=== PATIENT | female | born 2000 | race Caucasian/White ===

== ENCOUNTER 2021-08-21 07:21 | Emergency (ER) | payer MEDICAID ==
[~2021-08-21] VITALS: Ht 165.1 cm; Wt 52.3 kg
--- NOTE | 2021-08-21 08:00 | NUR ---
spoke to patient mother to inquire about what is going on ?pt mother stated she is having panic attack x 2 months they were going to the clinic or urgent care ,3 days ago precribed buspirone and since pt started taking pt got more worse . pt is paranoid about being septic and going to ,having visual hallucination about rashes and bruise all over her body and also concerned about having hiv. assessed the the whole body for any rashes .no rashes or bruise noted .
--- NOTE | 2021-08-21 08:20 | NUR ---
dr willis and mil at bedside.
[2021-08-21] MEDS ORDERED: LORazepam 1 MG tablet PO ONE (08:25)
[2021-08-21 08:50] LABS: URINE HCG NEGATIVE (NEG)
[2021-08-21 08:52] LABS: CLARITY,URINE SLIGHTLY CLOUDY (Clear); COLOR,URINE YELLOW (Yellow); GLUCOSE, URINE NEGATIVE (Neg); KETONES,URINE 40 mg/dl (Neg); LEUKOCYTE ESTERASE ,URINE NEGATIVE (Neg); NITRITES, URINE NEGATIVE (Neg); OCCULT BLOOD,URINE LARGE (Neg); PH,URINE 6.5 (4.8-8.0); PROTEIN,URINE NEGATIVE (Neg); UA COLLECTION TYPE CLN CATCH MIDSTREAM; UROBILINOGEN,URINE 0.2 E.U/dL (0.2-1.0)
[2021-08-21 08:57] LABS: URINE AMPHETAMINE SCREEN NEGATIVE (Neg); URINE BARBITUATE SCREEN NEGATIVE (Neg); URINE BENZODIAZEPINES SCREEN NEGATIVE (Neg); URINE CANNABINOID SCREEN POSITIVE (Neg); URINE COCAINE SCREEN NEGATIVE (Neg); URINE METHADONE SCREEN NEGATIVE (Neg); URINE OPIATE SCREEN NEGATIVE (Neg); URINE PHENCYCLIDINE SCREEN NEGATIVE (Neg)
[2021-08-21 08:58] LABS: SQUAMOUS EPITHELIAL CELL,UR MODERATE /LPF (FEW)
[2021-08-21 08:59] LABS: BACTERIA,URINE FEW /HPF (Neg); RBC,URINE 20-50 /HPF (0-2); WBC,URINE 0-4 /HPF (0-4)
--- NOTE | 2021-08-21 09:10 | NUR ---
dr thompson at bedside talking to pt and her mother.
[2021-08-21] MEDS ORDERED: LORA-269 PO (09:20)
[2021-08-21 09:34] VITALS: BP 120/82
== END 2021-08-21 09:37 | disposition home or self-care (01) ==
LOC: ER 07:24
DX: F41.9 Anxiety disorder, unspecified (principal); F32.A Depression, unspecified
CPT/HCPCS: 80305; 81001; 81025; 99283